=== PATIENT | female | born 1970 | race Caucasian/White ===

== ENCOUNTER 2022-12-07 15:56 | Emergency (ER) | payer OTHER ==
[2022-12-07] MEDS ORDERED: Lidocaine 1% (PF) 30 ML VIAL ONE (16:51)
[2022-12-07] MEDS ORDERED: Bacitracin 1 PK ONE (17:48)
== END 2022-12-07 17:55 | disposition home or self-care (01) ==
LOC: NAV ERS 15:56
DX: S61.213A Laceration without foreign body of left middle finger without damage to nail, initial encounter (principal); W27.0XXA Contact with workbench tool, initial encounter; Z23 Encounter for immunization
CPT/HCPCS: 12001; J2001